=== PATIENT | male | born 1955 | race Caucasian/White ===

== ENCOUNTER 2016-09-14 11:04 | Emergency (ER) | payer BC ==
[~2016-09-14] VITALS: Ht 182.9 cm; Wt 108.9 kg
[2016-09-14 11:26] VITALS: BP 157/97
[2016-09-14] MEDS ORDERED: DIPHTH,PERTUSS(ACELL),TET TOX 0.5 ML DISP.SYRIN. VAX IM ONE (11:45)
[2016-09-14] MEDS ORDERED: BACITRACIN/POLYMYXIN B TOPICAL OINT 15GM TUBE. TP SCH (11:45)
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
== END 2016-09-14 12:01 | disposition home or self-care (01) ==
LOC: ER 11:04
DX: T24.201A Burn of second degree of unspecified site of right lower limb, except ankle and foot, initial encounter (principal); E78.00 Pure hypercholesterolemia, unspecified; I10 Essential (primary) hypertension; Z86.73 Personal history of transient ischemic attack (TIA), and cerebral infarction without residual deficits; T75.09XA Other effects of lightning, initial encounter; Y92.89 Other specified places as the place of occurrence of the external cause
CPT/HCPCS: 16020; 90471; 90715; 99285-25